=== PATIENT | male | born 1990 | race Two or more races ===

== ENCOUNTER 2022-11-06 21:08 | Emergency (ER) | payer MEDICAID, OTHER ==
[~2022-11-06] VITALS: Ht 175.3 cm; Wt 77.3 kg
[2022-11-06 21:35] VITALS: PULSE 110; RESP 20; O2SAT 92
[2022-11-06 22:08] LABS: Basophils # (auto) 0 10 ^3/uL (0-0.2); Basophils % (auto) 0.3 % (0.0-2.0); Eosinophils # (auto) 0 10 ^3/uL (0-0.8); Eosinophils % (auto) 0.2 % (0.0-7.0); Hematocrit 38.3 % (41.0-53.0); Lymphocytes % (auto) 9.7 % (10.0-50.0); Mean Corpuscular Hemoglobin 29.8 pg (28.0-32.0); Mean Corpuscular Volume 87.6 fL (80.0-100.0); Monocytes # (auto) 0.8 10 ^3/uL (0-1.3); Neutrophils # (auto) 8.4 10 ^3/uL (1.6-8.6); Neutrophils % (auto) 81.8 % (37.0-80.0); Red Blood Cells 4.37 10^6/uL (4.5-5.90); Red Cell Distribution Width 13.7 % (11.8-14.3); White Blood Cell 10.3 10^3/uL (4.4-10.8)
[2022-11-06 22:27] LABS: Albumin 3.8 g/dL (3.4-5.0); Calcium 8.4 mg/dL (8.5-10.1); Potassium 3.4 mmol/L (3.5-5.1)
[2022-11-06 22:29] LABS: Acetaminophen < 2.0 ug/mL (10-30); Salicylate < 1.7 mg/dL (2.8-20.0)
[2022-11-06 22:30] LABS: Bilirubin, Total 0.3 mg/dL (0.2-1.0); Total Protein 7.2 g/dL (6.4-8.2)
[2022-11-07] MEDS ORDERED: BUPRENORPHINE -NALOXONE 8-2mg SL TAB SL ONE (04:00)
[2022-11-07] MEDS ORDERED: LACTATED RINGER'S 1,000 ML IV ONE (04:00)
[2022-11-07 06:00] VITALS: BP 107/76; PULSE 85; RESP 10; O2SAT 94
[2022-11-07] MEDS ORDERED: NALO4SPR2 (06:35)
== END 2022-11-07 06:30 | disposition home or self-care (01) ==
LOC: ER 21:08
DX: T40.411A Poisoning by fentanyl or fentanyl analogs, accidental (unintentional), initial encounter (principal); F19.90 Other psychoactive substance use, unspecified, uncomplicated; R51.9 Headache, unspecified; Y92.89 Other specified places as the place of occurrence of the external cause
CPT/HCPCS: 36415; 70450; 80053; 80329; 85025; 96360

== ENCOUNTER 2025-01-11 10:52 | Emergency (ER) | payer MEDICAID, OTHER ==
[~2025-01-11] VITALS: Ht 177.8 cm; Wt 50.0 kg
[~2025-01-11 10:52] MED LIST: NALO4SPR2
[2025-01-11 10:55] VITALS: BP 146/98; PULSE 98; RESP 20; TEMP 97.1; O2SAT 96
[2025-01-11] MEDS ORDERED: NAPR-746 PO (11:34)
[2025-01-11] MEDS ORDERED: CEPH500C PO (11:34)
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
== END 2025-01-11 11:44 | disposition home or self-care (01) ==
LOC: ER 10:52
DX: Z48.00 Encounter for change or removal of nonsurgical wound dressing (principal); F19.90 Other psychoactive substance use, unspecified, uncomplicated; Z59.00 Homelessness unspecified